=== PATIENT | male | born 1950 | race Caucasian/White ===

== ENCOUNTER 2018-06-19 22:42 | Emergency (ER) | payer BC, MEDICARE ==
[2018-06-19] MEDS ORDERED: NS 0.9% 1000 ML* 2,000 ML IV ONE (23:01)
--- NOTE | 2018-06-19 23:06 | ED ---
Syncope/Near Syncope - HPI Summary HPI Summary: The pt is a 67 year old M presenting to the ED with a chief complaint of hyperthermia. 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 He sat down and then he passed out. He presently feels fine, and denies n/v/d. - History Of Current Complaint Chief Complaint: EDDizziness Time Seen by Provider: 06/19/18 22:52 Hx Obtained From: Patient Onset/Duration: Sudden Onset, Lasting Hours, Resolved Context: Unwitnessed Activity At Onset: Exertion Associated Head Trauma: No Aggravating Factor(s): Exertion Alleviating Factor(s): Rest Associated Signs And Symptoms: Lightheadedness, Numbness - Allergies/Home Medications Allergies/Adverse Reactions: Allergies Allergy/AdvReac Type Severity Reaction Status Date / Time No Known Allergies Allergy Verified 06/19/18 22:53 PMH/Surg Hx/FS Hx/Imm Hx Previously Healthy: Yes Endocrine/Hematology History: Denies: Hx Diabetes History: Denies: Hx Acute Renal Failure Infectious Disease History: No Infectious Disease History: Denies: Traveled Outside the [place] in Last 30 Days - Family History Known Family History: Negative: Renal Disease - Social History Alcohol Use: None Substance Use Type: Reports: None Smoking Status (MU): Never Smoked Tobacco Review of Systems Negative: Vomiting, Diarrhea, Nausea Neurological: Other - lightheaded All Other Systems Reviewed And Are Negative: Yes Physical Exam - Summary Physical Exam Summary: Appearance: Well-appearing, Well-nourished, lying in bed comfortable Skin: Warm, dry, no obvious rash Eyes: sclera anicteric, no conjunctival pallor ENT: mucous membranes moist Neck: deferred Respiratory: No signs of respiratory distress Cardiovascular: Appears well perfused, pulses are nml Abdomen: deferred Musculoskeletal: Moving all 4 extremities without obvious discomfort Neurological: Awake and alert, mentation is normal, speech is fluent and appropriate Psychiatric: affect is normal, does not appear anxious or depressed Triage Information Reviewed: Yes Vital Signs On Initial Exam: Initial Vitals Temp Pulse Resp BP Pulse Ox 97.9 F 90 20 166/96 98 06/19/18 22:46 06/19/18 22:46 06/19/18 22:46 06/19/18 22:46 06/19/18 22:46 Vital Signs Reviewed: Yes Diagnostics - Vital Signs Vital Signs Temp Pulse Resp BP Pulse Ox 06/19/18 22:46 97.9 F 90 20 166/96 98 - Laboratory Result Diagrams: 06/19/18 23:32 06/19/18 23:32 Lab Statement: Any lab studies that have been ordered have been reviewed, and results considered in the medical decision making process. - EKG 2319 Cardiac Rate: NL - 94 EKG Rhythm: Sinus Rhythm ST Segment: Normal Ectopy: None Course/Dx Assessment/Plan: The pt was playing guitar and singing tonight, and after he got off stage he felt lightheaded and dizzy. He sat down and passed out. He presently feels fine, is a little dehydrated. - Diagnoses Provider Diagnoses: Vasovagal syncope Discharge - Sign-Out/Discharge Documenting (check all that apply): Patient Departure - Discharge Plan Condition: Stable Disposition: HOME Patient Education Materials: Syncope (ED) Referrals: [facility] [Outside] Additional Instructions: The only abnormality that emerged in your workup tonight was an elevated WBC count, which is very likely a stress response. Nothing need be done about it now , but you should have a repeat CBC within a few weeks to make sure it has normalized. - Billing Disposition and Condition Condition: STABLE Disposition: Home - Attestation Statements Document Initiated by Nazanin: Yes Documenting Scribe: Gabi Ceballos Provider For Whom Nazanin is Documenting (Include Credential): Bartolo Begum MD. Scribe Attestation: Gabi Brock scribed for Bartolo Begum MD. on 06/20/18 at 0646. Scribe Documentation Reviewed: Yes Provider Attestation: The documentation as recorded by the [email or web address] accurately reflects the service I personally performed and the decisions made by me, Bartolo Begum MD.
[2018-06-19 23:38] LABS: Hematocrit 45 % (42-52); Hemoglobin 15.3 g/dl (14.0-18.0); Mean Corpuscular HGB Conc 34 g/dl (31-36); Mean Corpuscular Hemoglobin 30 pg (27-31); Mean Corpuscular Volume 87 fL (80-94); Mean Platelet Volume 7.8 um3 (7.4-10.4); Platelet Count 292 10^3/ul (150-450); Red Blood Count 5.19 10^6/ul (4.00-5.40); Red Cell Distribution Width 14 % (10.5-15); White Blood Count 26.6 10^3/ul (3.5-10.8)
[2018-06-19 23:54] LABS: EGFR Non-African American 55.6 (>60)
[2018-06-20 00:42] LABS: ABS Basophils 0.1 10^3/ul (0-0.2); ABS Eosinophils 0 10^3/ul (0-0.6); ABS Lymphocytes 1.2 10^3/ul (1.0-4.8); ABS Monocytes 1.7 10^3/ul (0-0.8); ABS Neutrophils 23.5 10^3/ul (1.5-7.7); ABS Nucleated RBC 0 10^3/ul; Eosinophil % 0.1 % (0-6); Lymphocyte % 4.6 % (25-47); Nucleated Red Blood Cells % 0
[2018-06-20 02:34] VITALS: BP 183/101
== END 2018-06-20 02:34 | disposition home or self-care (01) ==
LOC: ED 22:42
DX: R55 Syncope and collapse (principal)
CPT/HCPCS: 36415; 80048; 85025; 93005; 96360; 96361; 99283

== ENCOUNTER 2021-09-23 09:43 | Inpatient (IN) ==
[2021-09-23 10:43] LABS: ABS Lymphocytes 0.7 10^3/ul (1.0-4.8); ABS Monocytes 0.7 10^3/ul (0-0.8); ABS Neutrophils 10.3 10^3/ul (1.5-7.7); Eosinophil % 0.3 %; Hematocrit 50 % (42-52); Lymphocyte % 5.7 %; Mean Corpuscular HGB Conc 34 g/dL (31-36); Mean Corpuscular Hemoglobin 29 pg (27-31); Mean Corpuscular Volume 86 fL (80-94); Mean Platelet Volume 7.4 fL (7.4-10.4); Nucleated Red Blood Cells % 0.1; Platelet Count 311 10^3/uL (150-450); Red Blood Count 5.87 10^6 /uL (4.18-5.48); Red Cell Distribution Width 14 % (10-15); White Blood Count 11.8 10^3/uL (3.5-10.8)
[2021-09-23 11:00] LABS: Urine Appearance Cloudy; Urine Bilirubin Negative (Negative); Urine Blood 1+ (Negative); Urine Color Amber; Urine Glucose Negative (Negative); Urine Ketones 1+ (Negative); Urine Nitrite Negative (Negative); Urine Protein 2+(100 mg/dL) (Negative); Urine Specific Gravity 1.026 (1.002-1.030); Urine Urobilinogen Positive (Negative)
[2021-09-23 11:04] LABS: Albumin 4.4 g/dL (3.2-5.2); Anion Gap 10 mmol/L (2-11); Blood Urea Nitrogen 20 mg/dL (6-24); CO2 Carbon Dioxide 24 mmol/L (22-32); Calcium 9.4 mg/dL (8.6-10.3); Chloride 103 mmol/L (101-111); Globulin 2.8 g/dL (2-4); Glucose 96 mg/dL (70-100); Sodium 137 mmol/L (135-145); Total Protein 7.2 g/dL (6.4-8.9); eGFR CKD-EPI 69.2 (>60)
[2021-09-23 11:05] LABS: ALT 27 U/L (7-52); AST 29 U/L (13-39); Albumin/Globulin Ratio 1.6 (1-3); Alkaline Phosphatase 102 U/L (35-149)
[2021-09-23 11:10] LABS: Urine Bacteria Absent (Absent); Urine Red Blood Cell Trace(0-2/hpf) (Absent); Urine White Blood Cell Trace(0-5/hpf) (Absent)
[2021-09-23 11:11] LABS: Acetaminophen < 15 mcg/mL; Alcohol, S < 13 mg/dL (<13); Salicylate < 2.50 mg/dL (<30)
[2021-09-23 11:24] LABS: TSH Ultra Thyroid Stim Horm 1.74 mcIU/mL (0.34-5.60)
[2021-09-23 11:25] LABS: Urine Benzodiazepine Screen None Detected (None Detect); Urine Cannabinoids Screen None Detected (None Detect); Urine Opiates Screen None Detected (None Detect)
[2021-09-23] MEDS ORDERED: Al Hydrox/Mg Hydrox/Simet LIQ 30 ML UDC PO PRN (12:44)
[2021-09-24 13:50] LABS: GGTP 27 U/L (9-64.0); Indirect Bilirubin 0.9 mg/dL (0.3-1.0)
[2021-09-25 07:50] LABS: HDL Cholesterol 38.3 mg/dL
[2021-09-25] MEDS ORDERED: Benzocaine/Menthol LOZ PO PRN (09:47)
[2021-09-26 09:03] LABS: Albumin 3.7 g/dL (3.2-5.2); Albumin/Globulin Ratio 1.8 (1-3); Calcium 8.3 mg/dL (8.6-10.3); Globulin 2.1 g/dL (2-4); Potassium 4.2 mmol/L (3.5-5.0); Total Bilirubin 0.5 mg/dL (0.2-1.0); Total Protein 5.8 g/dL (6.4-8.9); eGFR CKD-EPI 92.2 (>60)
[2021-09-26 10:02] LABS: Magnesium 2.2 mg/dL (1.9-2.7); Phosphorus 3.7 mg/dL (2.5-5.0)
[2021-09-26] MEDS: Multivitamins/Minerals TAB PO SCH (15:33)
[2021-09-27] MEDS: Multivitamins/Minerals TAB PO SCH (09:49)
[2021-09-28] MEDS: Multivitamins/Minerals TAB PO SCH (09:11)
[2021-09-28 21:54] LABS: Calcium 8.8 mg/dL (8.6-10.3); Potassium 4.2 mmol/L (3.5-5.0); eGFR CKD-EPI 95.2 (>60)
[2021-09-29] MEDS: Multivitamins/Minerals TAB PO SCH (08:34)
[2021-09-30] MEDS: Multivitamins/Minerals TAB PO SCH (09:20)
[2021-10-01] MEDS: Multivitamins/Minerals TAB PO SCH (09:21)
[2021-10-02 08:34] LABS: Calcium 9.1 mg/dL (8.6-10.3); eGFR CKD-EPI 52.7 (>60)
[2021-10-02 08:36] LABS: Potassium 5.5 mmol/L (3.5-5.0)
[2021-10-02] MEDS: Multivitamins/Minerals TAB PO SCH (09:59)
[2021-10-02] MEDS ORDERED: NS 0.9% 500 ml BAG 500 ML IV ONE (16:04)
[2021-10-02 20:33] LABS: Urine Appearance Clear; Urine Bilirubin Negative (Negative); Urine Blood Negative (Negative); Urine Color Yellow; Urine Glucose Negative (Negative); Urine Ketones Negative (Negative); Urine Nitrite Negative (Negative); Urine Protein 1+(30 mg/dL) (Negative); Urine Specific Gravity 1.015 (1.002-1.030); Urine Urobilinogen Negative (Negative); Urine pH 5 (5-9)
[2021-10-02 21:31] LABS: Calcium 8.4 mg/dL (8.6-10.3); Potassium 3.8 mmol/L (3.5-5.0)
[2021-10-03] MEDS: Multivitamins/Minerals TAB PO SCH (10:08)
[2021-10-04 07:23] LABS: Calcium 8.6 mg/dL (8.6-10.3); Potassium 4.3 mmol/L (3.5-5.0); eGFR CKD-EPI 75.5 (>60)
[2021-10-04] MEDS: Multivitamins/Minerals TAB PO SCH (09:33)
[2021-10-05] MEDS: Multivitamins/Minerals TAB PO SCH (09:23)
[2021-10-06] MEDS: Multivitamins/Minerals TAB PO SCH (08:39)
[2021-10-07] MEDS: Multivitamins/Minerals TAB PO SCH (09:23)
[2021-10-07] MEDS ORDERED: COVID-19 VACCINE, TRIS(PFIZER)/PF 30 MCG/0.3 ML IM ONE (15:00)
[2021-10-07 20:10] VITALS: BP 123/82
== END 2021-10-07 18:00 | disposition home or self-care (01) | DRG 885 ==
LOC: ED 09:43 → EDHOLD 12:44 → BSU 15:15
PROVIDERS: ADMIT Psychiatry & Neurology Psychiatry; ATTEND Psychiatry & Neurology Psychiatry

== ENCOUNTER 2021-11-13 13:35 | Inpatient (IN) ==
[2021-11-13 15:48] LABS: Urine Appearance Cloudy; Urine Bilirubin Negative (Negative); Urine Blood 1+ (Negative); Urine Color Yellow; Urine Glucose Negative (Negative); Urine Ketones Negative (Negative); Urine Nitrite Negative (Negative); Urine Protein 1+(30 mg/dL) (Negative); Urine Specific Gravity 1.019 (1.002-1.030); Urine Urobilinogen Positive (Negative)
[2021-11-13 15:51] LABS: ABS Basophils 0.1 10^3/ul (0-0.2); ABS Eosinophils 0.1 10^3/ul (0-0.6); ABS Lymphocytes 1.1 10^3/ul (1.0-4.8); ABS Monocytes 0.6 10^3/ul (0-0.8); ABS Neutrophils 8.2 10^3/ul (1.5-7.7); Eosinophil % 0.9 %; Hematocrit 44 % (42-52); Hemoglobin 14.7 g/dL (14.0-18.0); Lymphocyte % 11.2 %; Mean Corpuscular HGB Conc 34 g/dL (31-36); Mean Corpuscular Hemoglobin 29 pg (27-31); Mean Corpuscular Volume 86 fL (80-94); Mean Platelet Volume 7.1 fL (7.4-10.4); Platelet Count 374 10^3/uL (150-450); Red Cell Distribution Width 14 % (10-15); White Blood Count 10.1 10^3/uL (3.5-10.8)
[2021-11-13 15:52] LABS: Urine Bacteria 1+ (Absent); Urine Red Blood Cell Trace(0-2/hpf) (Absent); Urine White Blood Cell Trace(0-5/hpf) (Absent)
[2021-11-13 16:13] LABS: Urine Benzodiazepine Screen None Detected (None Detect); Urine Cannabinoids Screen None Detected (None Detect); Urine Opiates Screen None Detected (None Detect)
[2021-11-13 16:28] LABS: ALT 12 U/L (7-52); AST 13 U/L (13-39); Acetaminophen < 15 mcg/mL; Albumin 4.1 g/dL (3.2-5.2); Albumin/Globulin Ratio 2.1 (1-3); Alcohol, S < 13 mg/dL (<13); Alkaline Phosphatase 103 U/L (35-149); Anion Gap 8 mmol/L (2-11); Blood Urea Nitrogen 12 mg/dL (6-24); CO2 Carbon Dioxide 21 mmol/L (22-32); Calcium 9.5 mg/dL (8.6-10.3); Chloride 107 mmol/L (101-111); Glucose 91 mg/dL (70-100); Potassium 4.1 mmol/L (3.5-5.0); Salicylate < 2.50 mg/dL (<30); Sodium 136 mmol/L (135-145); Total Protein 6.1 g/dL (6.4-8.9); eGFR CKD-EPI 93.2 (>60)
[2021-11-14] MEDS ORDERED: Al Hydrox/Mg Hydrox/Simet LIQ 30 ML UDC PO PRN (00:08)
[2021-11-14 08:04] LABS: HDL Cholesterol 44.6 mg/dL
[2021-11-14] MEDS: Vitamin THERAPEUTIC TAB PO SCH (10:37)
[2021-11-15] MEDS: Vitamin THERAPEUTIC TAB PO SCH (09:00)
[2021-11-16] MEDS: Vitamin THERAPEUTIC TAB PO SCH (09:02)
[2021-11-17] MEDS: Vitamin THERAPEUTIC TAB PO SCH (08:29)
[2021-11-18] MEDS: Vitamin THERAPEUTIC TAB PO SCH (08:57)
[2021-11-19] MEDS: Vitamin THERAPEUTIC TAB PO SCH (08:22)
[2021-11-20] MEDS: Vitamin THERAPEUTIC TAB PO SCH (08:57)
[2021-11-20 10:39] VITALS: BP 165/85
== END 2021-11-20 14:00 | disposition home or self-care (01) | DRG 885 ==
LOC: ED 13:35 → BSU 11-14 00:03
PROVIDERS: ADMIT Psychiatry & Neurology Psychiatry; ATTEND Psychiatry & Neurology Psychiatry

== ENCOUNTER 2022-08-23 17:01 | Inpatient (IN) ==
[2022-08-23 19:28] LABS: ABS Basophils 0.1 10^3/ul (0-0.2); ABS Eosinophils 0.1 10^3/ul (0-0.6); Eosinophil % 0.4 %; Hematocrit 47 % (42-52); Hemoglobin 15.3 g/dL (14.0-18.0); Lymphocyte % 6.7 %; Mean Corpuscular HGB Conc 33 g/dL (31-36); Mean Corpuscular Hemoglobin 28 pg (27-31); Mean Corpuscular Volume 84 fL (80-94); Mean Platelet Volume 6.9 fL (7.4-10.4); Platelet Count 400 10^3/uL (150-450); Red Blood Count 5.53 10^6 /uL (4.18-5.48); Red Cell Distribution Width 15 % (10-15); White Blood Count 15.2 10^3/uL (3.5-10.8)
[2022-08-23 19:30] LABS: Urine Appearance Clear; Urine Bilirubin 1+ (Small) (Negative); Urine Blood Negative (Negative); Urine Color Yellow; Urine Glucose Negative (Negative); Urine Ketones 1+ (15mg/dL) (Negative); Urine Nitrite Positive (Negative); Urine Protein 2+ (100 mg/dL) (Negative)
[2022-08-23 19:43] LABS: Urine Bacteria Absent (Absent); Urine Red Blood Cell Trace(0-2/hpf) (Absent); Urine Squamous Epithelial Cell Present (Absent); Urine White Blood Cell Trace(0-5/hpf) (Absent)
[2022-08-23 19:51] LABS: Urine Benzodiazepine Screen None Detected (None Detect); Urine Cannabinoids Screen None Detected (None Detect); Urine Opiates Screen None Detected (None Detect)
[2022-08-23 19:52] LABS: Albumin 4.3 g/dL (3.2-5.2); Albumin/Globulin Ratio 1.8 (1-3); Calcium 9.7 mg/dL (8.6-10.3); Globulin 2.4 g/dL (2-4); Potassium 4.5 mmol/L (3.5-5.0); Total Protein 6.7 g/dL (6.4-8.9); eGFR CKD-EPI 93.6 (>60)
[2022-08-23 20:07] LABS: TSH Ultra Thyroid Stim Horm 2.14 mcIU/mL (0.34-5.60)
[2022-08-23] MEDS ORDERED: Nicotine GUM 2MG FRUIT FLAVOR PO PRN (23:00)
[2022-08-23] MEDS ORDERED: Al Hydrox/Mg Hydrox/Simet LIQ 30 ML UDC PO PRN (23:25)
[2022-08-23] MEDS ORDERED: [UNRECOGNIZED DRUG - REMARK] PO (23:25)
[2022-08-24] MEDS: Nicotine PATCH 14 MG/24 HR PATCH TRANSDERM SCH (09:02)
[2022-08-24] MEDS: Vitamin THERAPEUTIC TAB PO SCH (09:02)
[2022-08-25] MEDS: Vitamin THERAPEUTIC TAB PO SCH (09:35)
[2022-08-25] MEDS: Nicotine PATCH 14 MG/24 HR PATCH TRANSDERM SCH (09:35)
[2022-08-26] MEDS: Vitamin THERAPEUTIC TAB PO SCH (08:12)
[2022-08-26] MEDS: Nicotine PATCH 14 MG/24 HR PATCH TRANSDERM SCH (08:15)
[2022-08-27] MEDS: Vitamin THERAPEUTIC TAB PO SCH (08:11)
[2022-08-27] MEDS: Nicotine PATCH 14 MG/24 HR PATCH TRANSDERM SCH (08:13)
[2022-08-28] MEDS: Vitamin THERAPEUTIC TAB PO SCH (08:41)
[2022-08-29] MEDS: Vitamin THERAPEUTIC TAB PO SCH (09:34)
[2022-08-29] MEDS: NIRMATRELVIR/RITONAVIR 1 PAK eGFR > 60 PO SCH ×2 (11:37→21:17)
[2022-08-30] MEDS: Vitamin THERAPEUTIC TAB PO SCH (09:11)
[2022-08-30] MEDS: NIRMATRELVIR/RITONAVIR 1 PAK eGFR > 60 PO SCH ×2 (09:11→21:43)
[2022-08-31] MEDS: Vitamin THERAPEUTIC TAB PO SCH (10:08)
[2022-08-31] MEDS: NIRMATRELVIR/RITONAVIR 1 PAK eGFR > 60 PO SCH ×2 (10:09→21:31)
[2022-09-01] MEDS: Vitamin THERAPEUTIC TAB PO SCH (09:13)
[2022-09-01] MEDS: NIRMATRELVIR/RITONAVIR 1 PAK eGFR > 60 PO SCH ×2 (09:13→21:23)
[2022-09-02] MEDS: Vitamin THERAPEUTIC TAB PO SCH (08:47)
[2022-09-02] MEDS: NIRMATRELVIR/RITONAVIR 1 PAK eGFR > 60 PO SCH ×2 (08:47→21:42)
[2022-09-03] MEDS: Vitamin THERAPEUTIC TAB PO SCH (09:19)
[2022-09-04] MEDS: Vitamin THERAPEUTIC TAB PO SCH (08:51)
[2022-09-05] MEDS: Vitamin THERAPEUTIC TAB PO SCH (08:52)
[2022-09-06] MEDS: Vitamin THERAPEUTIC TAB PO SCH (09:59)
[2022-09-07] MEDS: Vitamin THERAPEUTIC TAB PO SCH (09:27)
[2022-09-08] MEDS: Vitamin THERAPEUTIC TAB PO SCH (08:14)
[2022-09-09] MEDS: Vitamin THERAPEUTIC TAB PO SCH (09:23)
[2022-09-10] MEDS: Vitamin THERAPEUTIC TAB PO SCH (08:42)
[2022-09-11] MEDS: Vitamin THERAPEUTIC TAB PO SCH (08:42)
[2022-09-12] MEDS: Vitamin THERAPEUTIC TAB PO SCH (08:06)
[2022-09-13] MEDS: Vitamin THERAPEUTIC TAB PO SCH (08:34)
[2022-09-14] MEDS: Vitamin THERAPEUTIC TAB PO SCH (08:17)
[2022-09-15] MEDS: Vitamin THERAPEUTIC TAB PO SCH (09:54)
[2022-09-16] MEDS: Vitamin THERAPEUTIC TAB PO SCH (08:30)
[2022-09-16 09:53] VITALS: BP 152/76
== END 2022-09-16 18:43 | disposition home or self-care (01) | DRG 880 ==
LOC: ED 17:01 → BSU 21:44
PROVIDERS: ADMIT Psychiatry & Neurology Addiction Psychiatry; ATTEND Psychiatry & Neurology Addiction Psychiatry